=== PATIENT | female | born 1990 | race African-American/Black ===

== ENCOUNTER 2023-06-08 21:31 | Inpatient (IN) | payer BC, OTHER ==
[~2023-06-08] VITALS: Ht 167.6 cm; Wt 61.7 kg
[2023-06-08 20:00] VITALS: BP 99/61; PULSE 69; RESP 18; TEMP 97.9; O2SAT 100
[2023-06-08] MEDS ORDERED: MORPHINE SULFATE 4 MG/ML SYR/VIAL IV ONE (22:00)
[2023-06-08] MEDS ORDERED: ONDANSETRON HCL 4 MG/2 ML VIAL IV ONE (22:00)
[2023-06-08] MEDS ORDERED: SODIUM CHLORIDE 0.9% 1,000 ML IV ONE (22:00)
[2023-06-08 22:25] VITALS: PULSE 86; RESP 20; O2SAT 99
[2023-06-08 22:41] LABS: Basophils % (auto) 0.4 % (0.0-2.0); Eosinophils # (auto) 0 10 ^3/uL (0-0.8)
[2023-06-08 22:43] LABS: Urine Amorphous Crystal FEW /hpf (None Seen); Urine Bacteria FEW /hpf (None Seen); Urine Blood Negative /uL (Negative); Urine Clarity HAZY (Clear); Urine Color Yellow (Yellow); Urine Mucus FEW (None Seen); Urine Protein, UAD TRACE (Negative); Urine Specific Gravity 1.027 (1.001-1.035); Urine Urobilinogen Normal (Negative); Urine WBC 4 /hpf (0 - 5)
[2023-06-08 22:43] LABS: Basophils # (auto) 0.1 10 ^3/uL (0-0.2); Hematocrit 35.1 % (36.0-46.0); Hemoglobin 11.5 g/dL (12.2-16.2); Lymphocytes # (auto) 1.1 10 ^3/uL (0.4-5.4); Lymphocytes % (auto) 9.2 % (10.0-50.0); Mean Corpuscular Hgb Conc. 32.7 g/dL (32.0-36.0); Mean Corpuscular Volume 82.6 fL (80.0-100.0); Monocytes # (auto) 0.3 10 ^3/uL (0-1.3); Monocytes % (auto) 2.5 % (0.0-12.0); Neutrophils # (auto) 10.6 10 ^3/uL (1.6-8.6); Neutrophils % (auto) 87.9 % (37.0-80.0); Red Blood Cells 4.25 10^6/uL (4.0-5.20); Red Cell Distribution Width 13.9 % (11.8-14.3); White Blood Cell 12.1 10^3/uL (4.4-10.8)
[2023-06-08 22:54] LABS: Alanine Aminotransferase 17 U/L (7-40); Alkaline Phosphatase 31 U/L (46-116); Anion Gap 9 (5-15); Aspartate Aminotransferase 16 U/L (13-40); Carbon Dioxide 23 mmol/L (20-30); Chloride 105 mmol/L (98-107); Glucose 112 mg/dL (74-106); Lipase 28 U/L (12-53); Potassium 3.6 mmol/L (3.5-5.1); Sodium 137 mmol/L (136-145)
[2023-06-08 22:55] LABS: Albumin 4.3 g/dL (3.2-4.8); BUN/Creatinine Ratio 9.5 (10.0-20.0); Bilirubin, Total 1.3 mg/dL (0.2-1.0); Blood Urea Nitrogen 6 mg/dL (9-23); Total Protein 6.9 g/dL (5.7-8.2)
[2023-06-08] MEDS ORDERED: metroNIDAZOLE 500MG/100ML 100 ML IV ONE (23:15)
[2023-06-08] MEDS ORDERED: cefTRIAXone 1GM/50ML D5W 50 ML IV ONE (23:15)
[2023-06-08 23:25] VITALS: PULSE 86; RESP 20; O2SAT 99
[2023-06-09] VITALS (7 sets, daily range): BP systolic 99–102; BP diastolic 53–71; PULSE 69–87; RESP 12–19; TEMP 97.9–98.9; O2SAT 92–100
[2023-06-09] MEDS ORDERED: MORPHINE SULFATE 4 MG/ML SYR/VIAL IV ONE (02:00)
[2023-06-09] MEDS ORDERED: SODIUM CHLORIDE 0.9% 1,000 ML IV ONE (02:15)
[2023-06-09] MEDS ORDERED: KETOROLAC TROMETH 30 MG/ML 1ML VIAL IV ONE (02:30)
[2023-06-09] MEDS: SODIUM CHLORIDE 0.9% 1,000 ML IV SCH ×2 (03:15→15:45)
[2023-06-09] MEDS ORDERED: ONDANSETRON HCL 4 MG/2 ML VIAL IV PRN ×3 (03:15→15:00)
[2023-06-09] MEDS ORDERED: ALBUMIN 5% 250 ML IV ONE (03:15)
[2023-06-09] MEDS ORDERED: MORPHINE SULFATE INJ 2 MG/ml SYRG IV PRN (03:15)
[2023-06-09 03:56] LABS: INR 1.14 (0.9-1.15); Partial Thromboplastin Time 28.9 SEC (24.5-34.5); Prothrombin Time 11.9 sec (9.3-11.8)
[2023-06-09] MEDS ORDERED: AZITHROMYCIN 500MG/ 250ML 250 ML IV SCH (04:00)
[2023-06-09] MEDS ORDERED: MORPHINE SULFATE INJ 2 MG/ml SYRG IV ONE (05:00)
[2023-06-09] MEDS ORDERED: BUPIVACAINE HCL 50 ML ONE (12:22)
[2023-06-09] MEDS ORDERED: ceFAZolin 1GM/50ML 100 ML IV ONE (12:23)
[2023-06-09] MEDS ORDERED: fentaNYL CITRATE 100 MCG/2 ML VL ONE (12:44)
[2023-06-09] MEDS ORDERED: MIDAZOLAM HCL 2MG/2ML 2ml VIAL (1mg/ml) ONE (12:44)
[2023-06-09] MEDS ORDERED: PROPOFOL 10 MG/ML 20 ML IV ONE (12:46)
[2023-06-09] MEDS ORDERED: ONDANSETRON HCL 4 MG/2 ML VIAL ONE (12:46)
[2023-06-09] MEDS ORDERED: LIDOCAINE 2% (LOCAL ANESTH.) PF 5ml SDV ONE (12:46)
[2023-06-09] MEDS ORDERED: NEOSTIGMINE 1 MG/ML INJ (10mg/10ML VIAL) ONE (13:55)
[2023-06-09] MEDS ORDERED: GLYCOPYRROLATE 0.2 MG/ML 1ML VIAL ONE (13:55)
[2023-06-09] MEDS ORDERED: HYDROmorphone HCL 2 MG/ML VL/or syr IV PRN ×2 (14:15)
[2023-06-09] MEDS ORDERED: HYDROcodone-ACET 5/325MG TAB PO PRN (15:00)
[2023-06-09] MEDS ORDERED: ACETAMINOPHEN 500 MG TAB PO PRN (15:00)
[2023-06-09] MEDS ORDERED: cefTRIAXone 1GM/50ML D5W 50 ML IV SCH (21:00)
[2023-06-10] MEDS: SODIUM CHLORIDE 0.9% 1,000 ML IV SCH ×2 (04:57→11:15)
[2023-06-10 05:00] VITALS: BP 107/62; PULSE 67; RESP 18; TEMP 97.9; O2SAT 100
[2023-06-10 05:37] LABS: Basophils # (auto) 0.1 10 ^3/uL (0-0.2); Basophils % (auto) 0.6 % (0.0-2.0); Eosinophils # (auto) 0 10 ^3/uL (0-0.8); Eosinophils % (auto) 0.2 % (0.0-7.0); Hematocrit 32.1 % (36.0-46.0); Hemoglobin 10.6 g/dL (12.2-16.2); Lymphocytes # (auto) 2.2 10 ^3/uL (0.4-5.4); Lymphocytes % (auto) 21.9 % (10.0-50.0); Mean Corpuscular Hemoglobin 27.3 pg (28.0-32.0); Mean Corpuscular Volume 82.8 fL (80.0-100.0); Monocytes # (auto) 0.4 10 ^3/uL (0-1.3); Neutrophils # (auto) 7.4 10 ^3/uL (1.6-8.6); Neutrophils % (auto) 73.3 % (37.0-80.0); Nucleated Red Blood Cells % 0.1 %; Red Blood Cells 3.88 10^6/uL (4.0-5.20); Red Cell Distribution Width 13.9 % (11.8-14.3); White Blood Cell 10.1 10^3/uL (4.4-10.8)
[2023-06-10 05:54] LABS: Alanine Aminotransferase 21 U/L (7-40); Alkaline Phosphatase 35 U/L (46-116); Calcium 8.7 mg/dL (8.5-10.1); Carbon Dioxide 26 mmol/L (20-30); Chloride 108 mmol/L (98-107)
[2023-06-10 05:55] LABS: Albumin 3.9 g/dL (3.2-4.8); Anion Gap 5 (5-15); Aspartate Aminotransferase 19 U/L (13-40); BUN/Creatinine Ratio 7.2 (10.0-20.0); Bilirubin, Total 1.1 mg/dL (0.2-1.0); Blood Urea Nitrogen 5 mg/dL (9-23); Glucose 106 mg/dL (74-106); Potassium 3.5 mmol/L (3.5-5.1); Sodium 139 mmol/L (136-145); Total Protein 6.3 g/dL (5.7-8.2)
[2023-06-10 08:00] VITALS: BP 111/58; PULSE 61; RESP 15; TEMP 98.8; O2SAT 95
[2023-06-10] MEDS ORDERED: TRAM50TA2 PO (08:56)
[2023-06-10] MEDS ORDERED: METR-344 PO (08:56)
[2023-06-10] MEDS ORDERED: LEVO500T91 PO (08:56)
[2023-06-10] MEDS ORDERED: METOCLOPRAMIDE HCL 5MG/ml INJ 2ml VIAL IV ONE (09:00)
[2023-06-10] MEDS ORDERED: DOCUSATE SOD 100 MG CAP PO ONE (09:00)
[2023-06-10 12:00] VITALS: BP 102/59; PULSE 82; RESP 14; TEMP 98.4; O2SAT 98
== END 2023-06-10 16:11 | disposition home or self-care (01) | DRG 398 ==
LOC: ER 21:31 → OVERFLOW 06-09 03:06 → EAST 06-09 09:20
PROVIDERS: ADMIT Nurse Practitioner; ATTEND Nurse Practitioner
PROC: 0DTJ4ZZ Resection of Appendix, Percutaneous Endoscopic Approach (ICD-10-PCS; principal; 2023-06-09 12:40)
DX: K35.33 Acute appendicitis with perforation, localized peritonitis, and gangrene, with abscess (principal); N39.0 Urinary tract infection, site not specified; R65.10 Systemic inflammatory response syndrome (SIRS) of non-infectious origin without acute organ dysfunction; Z82.49 Family history of ischemic heart disease and other diseases of the circulatory system
CPT/HCPCS: 36415; 71045; 74176; 80053; 81001; 81025; 83690; 85025; 85610; 85730; G0378; J0690; J0696; J1885; J2001; J2250; J2405; J2704; J3490